=== PATIENT | male | born 1955 | race Caucasian/White ===

== ENCOUNTER 2018-09-09 06:24 | Day surgery (SDC) | payer OTHER ==
[~2018-09-09 06:24] MED LIST: Buffered Lidocaine 0.9% SYRIN* 5 ML/SYR SYRINGE INTRADERM ONE
[2018-09-09] MEDS ORDERED: Naloxone* 0.4 MG/ML 1 ML VIAL IV PRN (07:28)
[2018-09-09] MEDS ORDERED: Ondansetron INJ* 2 MG/ML VIAL IV PRN (07:28)
[2018-09-09] MEDS ORDERED: fentaNYL* 50 MCG/ML 2 ML VIAL (100 MCG VIAL) ONE (07:30)
[2018-09-09] MEDS ORDERED: Midazolam* 1 MG/ML 2 ML VIAL (2 MG) ONE (07:30)
[2018-09-09] MEDS ORDERED: Clindamycin 900 MG/D5W BAG(*) 900 MG/50 ML BAG IVPB ONE (07:36)
[2018-09-09] MEDS ORDERED: Propofol* 10 MG/ML 20 ML BTL ONE (08:25)
[2018-09-09] MEDS ORDERED: Bupivacaine 0.25% SDV PF* 10 ML VIAL INJ ONE (08:30)
[2018-09-09 10:06] VITALS: BP 150/80
--- NOTE | 2018-09-10 02:16 | OP ---
DATE OF OPERATION: 09/09/18 - [facility] DATE OF : 51 SURGEON: Akbar Solis MD STOCK REPAIRER: CORNEL Wilder ANESTHESIOLOGIST: Dr. Nick ANESTHESIA: Local MAC. PRE-OP DIAGNOSIS: Right index middle, ring, and small trigger fingers. POST-OP DIAGNOSIS: Right index middle, ring, and small trigger fingers. OPERATIVE PROCEDURE: 1. Release of right index trigger finger with release of A1 sun. 2. Release of right middle trigger finger with release of A1 sun. 3. Release of right ring trigger finger with release of A1 sun. 4. Release of right small trigger finger with release of A1 sun. INDICATIONS: Shan has chronic trigger fingers in the right hand. We talked about risks and benefits. He had wanted to proceed with surgery. He has had nonoperative treatment. ESTIMATED BLOOD LOSS: 1 mL. COMPLICATIONS: None. FINDINGS: See above and below. DESCRIPTION OF PROCEDURE: Shan was seen in the preoperative holding area. The correct site, side, and procedure were identified. We came back to the operating room. We had a time-out. I infiltrated the operative area with 0.25 % plain Marcaine. The arm was then prepped and draped in the usual fashion and a time-out was performed. The arm was exsanguinated with the Esmarch and the tourniquet inflated to 250 mmHg. I made a transverse incision involving the distal palmar crease and extending radially over the index finger as well. I then dissected out raising full- thickness flaps off of the tendon sheaths, but the index, middle ring, and small fingers neurovascular bundles were left undisturbed. The palmar fascia was released in line with the incision. Once I had exposure of the tendon sheath, I went ahead and first released the index finger A1 sun along its radial third longitudinally in line with the tendons. The release was completed distally and proximally with the tenotomy scissors. There was a quite a bit of tenosynovitis around the tendons and so this was excised as well. I then came to the middle finger, and in a similar fashion, I released the A1 sun along the radial third longitudinally. The release was completed distally and proximally with the tenotomy scissors. The tenosynovitis was excised as well. I then came to the ring finger and released the A1 sun in same manner and excised the tenosynovitis. I then came to the small finger and released the A1 sun, again along the radial third and longitudinally and excised the tenosynovitis as well. I then checked each of the decompressions, everything was looking very good. I had Shan open and close the hand multiple times. He could not induce any triggering in the hand, closed nicely into a full fist and opened up nicely. I therefore irrigated out the wound. Skin was closed with 4-0 nylon sutures. The soft dressings were applied and he was taken to the recovery room in stable condition. [id number]/[facility] #: [id number]
== END 2018-09-09 10:21 | disposition home or self-care (01) ==
LOC: OREAST 06:24
PROVIDERS: ATTEND Orthopaedic Surgery Hand Surgery
DX: M65.341 Trigger finger, right ring finger (principal); M65.331 Trigger finger, right middle finger; M65.351 Trigger finger, right little finger; M65.321 Trigger finger, right index finger; G47.33 Obstructive sleep apnea (adult) (pediatric); Z87.891 Personal history of nicotine dependence; Z85.828 Personal history of other malignant neoplasm of skin
CPT/HCPCS: J2250; J2704; J3010; J3490